=== PATIENT | female | born 1970 | race Caucasian/White ===

== ENCOUNTER 2017-07-06 07:17 | Day surgery (SDC) | payer BC ==
[~2017-07-06] VITALS: Ht 172.7 cm; Wt 73.9 kg
[~2017-07-06 07:17] MED LIST: VITAMIN C PO; VITAMINS PO; YAZ PO
[2017-07-06] MEDS ORDERED: LR 1,000 ML IV SCH (08:53)
[2017-07-06] MEDS ORDERED: METOCLOPRAMIDE HCL 10 MG/2 ML VIAL IVP PRN (09:00)
[2017-07-06] MEDS ORDERED: MORPHINE 4 MG/ML INJ. SYRINGE IVP PRN ×3 (09:00)
[2017-07-06] MEDS ORDERED: NS 1000 ML BAG IV ONE (10:10)
[2017-07-06] MEDS ORDERED: NS IRRIG SOLN 1000 ML IR ONE (10:10)
[2017-07-06] MEDS ORDERED: ONDANSETRON HCL 4 MG/2 ML VIAL IVP ONE (10:10)
[2017-07-06] MEDS ORDERED: PROPOFOL 200MG/ 20ML VIAL (DIPRIVAN) IV ONE (10:10)
[2017-07-06] MEDS ORDERED: MIVACURIUM CHLORIDE 20 MG/10 ML VIAL (MIVACRON) INJ ONE (10:10)
[2017-07-06] MEDS ORDERED: SEVOFLURANE 15 MIN GAS INH ONE (10:10)
[2017-07-06] MEDS ORDERED: LR 1,000 ML IV.SOLN IV ONE (10:10)
[2017-07-06] MEDS ORDERED: fentaNYL CITRATE/PF 100 MCG/2 ML AMP IVP ONE (10:10)
[2017-07-06] MEDS ORDERED: KETOROLAC TROMETHAMINE 30 MG VIAL IVP ONE (10:10)
[2017-07-06] MEDS ORDERED: MIDAZOLAM HCL 5 MG/ML VIAL (VERSED) IV ONE (10:10)
[2017-07-06] MEDS ORDERED: IBUPROFEN 800 MG TABLET PO PRN (10:15)
[2017-07-06] MEDS ORDERED: OXYCODONE/ACETAMINOPHEN 5-325 TABLET PO PRN ×2 (10:15)
[2017-07-06] MEDS ORDERED: ONDANSETRON HCL 4 MG/2 ML VIAL IVP PRN (10:15)
--- NOTE | 2017-07-06 11:07 | NUR ---
[employer] SHAY faxed order to HCP, CHINTAN [place]. SHAY received faxs confirmation.
[2017-07-06 13:00] VITALS: BP_SYST 114
== END 2017-07-06 12:15 | disposition home or self-care (01) ==
LOC: SDS 07:17 → SMU 07:18 → SDS 12:15
PROVIDERS: ATTEND Obstetrics & Gynecology
DX: N84.0 Polyp of corpus uteri (principal); F06.4 Anxiety disorder due to known physiological condition; F33.9 Major depressive disorder, recurrent, unspecified; Z98.890 Other specified postprocedural states; Z82.0 Family history of epilepsy and other diseases of the nervous system
CPT/HCPCS: 58558; 88305; J7120; J1885; J2250; J2405; J2704; J3010; J7030